=== PATIENT | female | born 1980 | race Caucasian/White ===

== ENCOUNTER 2023-06-09 20:01 | Emergency (ER) | payer BC ==
[~2023-06-09] VITALS: Ht 165.1 cm; Wt 62.6 kg
[2023-06-09 20:12] VITALS: BP_SYST 111; PULSE 70; RESP 18; TEMP 98.4; O2SAT 99
[2023-06-09] MEDS ORDERED: KETOROLAC TROMETHAMINE 30 MG VIAL IM ONE (20:15)
[2023-06-09 20:51] LABS: BASOPHILS % (AUTO) 0.5 % (0.0-2.0); EOSINOPHILS # (AUTO) 0.3 K/uL (0.0-0.4); EOSINOPHILS % (AUTO) 2.5 % (0.0-4.0); HEMATOCRIT 41.6 % (36-48); LYMPHOCYTES # (AUTO) 3.1 K/uL (1.0-5.5); LYMPHOCYTES % (AUTO) 30.1 % (20.5-51.5); MEAN CORPUSCULAR HEMOGLOBIN 29 pg (27-31); MEAN CORPUSCULAR HGB CONC 34 % (32-36); MEAN CORPUSCULAR VOLUME 85 fL (79.0-98.0); MONOCYTES # (AUTO) 0.8 K/uL (0.0-1.0); MONOCYTES % (AUTO) 7.9 % (1.7-9.3); PLATELET COUNT (AUTO) 345 K/uL (130-430); RED BLOOD CELL COUNT(AUTO) 4.91 MIL/uL (4.2-6.2); RED CELL DISTRIBUTION WIDTH 13.7 % (9.0-15.0); WHITE BLOOD COUNT (AUTO) 10.1 K/uL (4.8-10.8)
[2023-06-09 20:59] LABS: CREATININE 0.82 mg/dL (0.55-1.30); POTASSIUM 3.8 mmol/L (3.5-5.1)
[2023-06-09 21:04] LABS: TOTAL BILIRUBIN 0.3 mg/dL (0.0-1.0); TOTAL PROTEIN, SERUM 7.6 g/dL (6.4-8.3)
[2023-06-09 21:54] LABS: BILIRUBIN,URINE NEGATIVE (NEGATIVE); BLOOD, URINE 1+ (NEGATIVE); COLOR,URINE YELLOW (YELLOW); GLUCOSE,URINE NEGATIVE (NEGATIVE); KETONES,URINE NEGATIVE (NEGATIVE); LEUKOCYTE ESTERASE ,URINE 1+ (NEGATIVE); NITRITE, URINE NEGATIVE (NEGATIVE); PROTEIN URINE NEGATIVE (NEGATIVE); UROBILINOGEN,URINE 0.2 (0.2-1.0)
[2023-06-09 22:02] LABS: CLARITY/URINE SLIGHTLY HAZY (CLEAR)
[2023-06-09 22:07] LABS: RBC,URINE 0-3 /HPF (0-3)
[2023-06-09 22:08] LABS: BACTERIA,URINE FEW /HPF (None Seen); MUCUS,URINE None Seen /LPF (None Seen)
[2023-06-09] MEDS ORDERED: cefTRIAXone 1 GM IVPB PREMIX 50 ML IV ONE (22:15)
[2023-06-09] MEDS ORDERED: MORPHINE 4 MG INJ. 4 MG/ML VIAL IVP ONE (23:15)
[2023-06-09] MEDS ORDERED: ONDANSETRON HCL 4 MG/2 ML VIAL IVP ONE (23:15)
[2023-06-09] MEDS ORDERED: HYDR-3917 PO (23:22)
[2023-06-09] MEDS ORDERED: NAPR-688 PO (23:22)
[2023-06-09] MEDS ORDERED: CEPH-548 PO (23:22)
[2023-06-09] MEDS ORDERED: TAMS-11 PO (23:22)
[2023-06-10 00:27] VITALS: BP_SYST 111; PULSE 94; RESP 20; TEMP 97.8; O2SAT 96
== END 2023-06-10 | disposition home or self-care (01) ==
LOC: SED 20:01
DX: K80.50 Calculus of bile duct without cholangitis or cholecystitis without obstruction (principal); R10.31 Right lower quadrant pain; R11.10 Vomiting, unspecified; Z79.899 Other long term (current) drug therapy
CPT/HCPCS: 99285; 74176; 96365; 80053; 81000; 85025; 87040; 87086; 36415; 76376; 96372; 83605; 96375; J0696; J1885; J2405; J2270